=== PATIENT | male | born 1950 | race Caucasian/White ===

== ENCOUNTER 2016-08-22 12:37 | Emergency (ER) | payer OTHER ==
[~2016-08-22] VITALS: Ht 170.2 cm; Wt 80.5 kg
[2016-08-22 12:39] VITALS: Ht 170.2 cm; Wt 80.5 kg
[2016-08-22] MEDS ORDERED: IBUPROFEN 600 MG TAB PO ONE (14:30)
--- NOTE | 2016-08-22 15:56 | RADRPT ---
PROCEDURE: Left XR Hand. CLINICAL INDICATION: Pain. TECHNIQUE: AP, oblique and lateral views of the left hand were obtained. COMPARISON: FINDINGS: The bony elements are rarefied. There is a subacute fracture to the tuft of the distal left fourth phalanx. There is soft tissue swelling and a contour change noted at the distal ulnar side of the l eft fourth digit adjacent to the fracture site. There is a large spur off the dorsal articular surface of the distal left third phalanx. This is li jessika degenerative in nature. Post traumatic change is not excluded. There is narrowing of the first through fifth DIP joint spaces and second through fifth PIP joint sp aces. The radiocarpal joint is slightly narrowed. IMPRESSION: 1. There is soft tissue swelling with a contour change in the soft tissues along the ulnar side of t he distal left fourth phalanx. There is an underline minimally displaced fracture to the tuft of th e distal left fourth phalanx which is likely subacute in nature. 2. Polyarticular arthritis. 3. Rarefaction of bony elements. RPTAT:AAJJ Physician Britney Date Time Electronically viewed and signed by Physician Britney on 08/22/2016 15:56 TRAVON/
[2016-08-22] MEDS ORDERED: CEFAZOLIN 1 GM INJ IM ONE (16:30)
[2016-08-22] MEDS ORDERED: LIDOCAINE 2% (MDV) 20 ML INJ INJ ONE (16:30)
[2016-08-22] MEDS ORDERED: CEPH-443 PO (16:30)
[2016-08-22] MEDS ORDERED: SULF1TAB31 PO (16:31)
--- NOTE | 2016-08-22 16:52 | ERD ---
ER Documentation Chief Complaint Date/Time DATE: 08/22/16 TIME: 16:35 Chief Complaint mechanical fall hx left sided paralysis aftert brain surgery left arm injur HPI This is a 65-year-old male presents to the ER after he slipped and fell, landing on his left fourth digit. 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 Patient does not have any fever or chills. She does not have any numbness or tingling of the fingers. ROS 12 point review of systems was done, all negative except per HPI. Medications Home Meds Active Scripts Sulfamethoxazole/Trimethoprim* (Bactrim Ds* Tablet) 1 Each Tablet, 1 TAB PO BID , #14 TAB Prov:KHOI RICHMOND 08/22/16 Cephalexin* (Keflex*) 500 Mg Capsule, 500 MG PO QID for 7 Days, CAP Prov:KHOI RICHMOND 08/22/16 Allergies Allergies: Coded Allergies: No Known Allergy (Unverified , 08/22/16) PMhx/Soc Medical and Surgical Hx: pt denies Medical Hx, pt denies Surgical Hx Hx Alcohol Use: No Hx Substance Use: No Hx Tobacco Use: No Smoking Status: Never smoker Physical Exam Vitals Vital Signs Date Time Temp Pulse Resp B/P Pulse Ox O2 Delivery O2 Flow Rate FiO2 08/22/16 12:39 98.9 85 18 155/78 98 Physical Exam GENERAL: The patient is well developed and appropriate for usual state of health , in no apparent distress. HEENT: Atraumatic. CHEST: Clear to auscultation bilaterally. There are no rales, wheezes or rhonchi. HEART: Regular rate and rhythm. No murmurs, clicks, rubs or gallops. EXTREMITIES: Patient has a left-sided paralysis. Patient has an avulsion of the distal fourth digit, nailbed is completely avulsed. He shouldn't sensations are intact, patient does not have any range of motion of his finger secondary to known paralysis. There is no wrist pain, elbow or shoulder pain. Patient is intact to the ulnar radial and median nerves. NEURO: Alert and oriented. SKIN: The skin is warm and dry. Results 24 hrs Current Medications Medications (Trade) Dose Ordered Sig/Bhargavi Route PRN Reason Start Time Stop Time Status Last Admin Dose Admin Ibuprofen (Motrin) 600 mg ONCE ONCE PO 08/22/16 14:30 08/22/16 14:31 DC 08/22/16 14:18 Cefazolin Sodium (Ancef) 1 gm ONCE ONCE IM 08/22/16 16:30 08/22/16 16:31 DC 08/22/16 16:29 Lidocaine (Xylocaine 2% (Mdv) 20 ml) 20 ml ONCE ONCE INJ 08/22/16 16:30 08/22/16 16:31 DC Procedures/MDM This is a 65 year old male that presents to the ER after falling onto his 4th digit. Patient does have a fracture of the digit and was given Ancef and a tdap shot. He will be sent home with Keflex and Bactrim. Area was irrigated with copious amounts of normal saline and dressed. He was put in a metal splint. I discussed with the patient that the nail will likely fall out as the entire nails bed has come out. I discussed with this case with my supervising physician Dr. Mayo, he agrees with my medical decision making. Patient was told to f/u with Orth[facility] at [facility]. Suspicion for acute compartment syndrome, osteomyelitis, deep space infection is low. Patient is afebrile and well appearing. I shared my medical decision making with the patient he needs return to ER sooner symptoms worsen. Patient understands and agrees with plan. Departure Diagnosis: Primary Impression: Open finger fracture Condition: Stable Patient Instructions: Fracture, Finger (Open) Referrals: [facility] Additional Instructions: Llame al doctor AZALIA y gunner héctor CHRIS PARA DENTRO DE 1-2 THORNTON.Dgale a la secretaria que nosotros le instruimos hacer esta chris.Avise o llame si casas condicin se empeora antes de la chris. Regresa aqui si peor o no mejor. NECESITA TYREE UN [facility] KHOI RICHMOND Aug 22, 2016 16:52
[2016-08-22] MEDS ORDERED: DIPHTH/TET/ACEL PERTUSS (ADULT) 0.5 ML VIAL IM* ONE (17:00)
== END 2016-08-22 16:56 | disposition home or self-care (01) ==
LOC: FTE 12:37
DX: S62.635A Displaced fracture of distal phalanx of left ring finger, initial encounter for closed fracture (principal); W01.0XXA Fall on same level from slipping, tripping and stumbling without subsequent striking against object, initial encounter; Y92.9 Unspecified place or not applicable; Z23 Encounter for immunization
CPT/HCPCS: 29130; 73130; 90471; 90715; 96372; 99284; J0690

== ENCOUNTER 2016-08-23 18:24 | Emergency (ER) | payer OTHER ==
[~2016-08-23] VITALS: Ht 167.6 cm; Wt 81.5 kg
[~2016-08-23 18:24] MED LIST: CEPH-443 PO; SULF1TAB31 PO
[2016-08-23 18:29] VITALS: Ht 167.6 cm; Wt 81.5 kg
--- NOTE | 2016-08-23 18:47 | ERA ---
ER Documentation Chief Complaint Date/Time DATE: 08/23/16 TIME: 18:43 Chief Complaint wound check left 4th finger, also wants copy of xray result/cd HPI This is a 65-year-old male presenting one day after right fourth distal phalanx of hand injury. Patient is wanting dressing change and wound check. Patient states that has been painful but no other complications are noted. Documents of visit and nursing notes have been reviewed. ROS All systems reviewed and are negative except as per history of present illness. Medications Home Meds Active Scripts Sulfamethoxazole/Trimethoprim* (Bactrim Ds* Tablet) 1 Each Tablet, 1 TAB PO BID , #14 TAB Prov:BASILIO,KHOI C 08/22/16 Cephalexin* (Keflex*) 500 Mg Capsule, 500 MG PO QID for 7 Days, CAP Prov:BASILIO,KHOI C 08/22/16 Allergies Allergies: Coded Allergies: No Known Allergy (Unverified , 08/23/16) PMhx/Soc Hx Alcohol Use: No Hx Substance Use: No Hx Tobacco Use: No Physical Exam Vitals Vital Signs Date Time Temp Pulse Resp B/P Pulse Ox O2 Delivery O2 Flow Rate FiO2 08/23/16 20:41 98.1 68 20 145/68 96 Room Air 08/23/16 18:29 98.0 69 20 144/73 97 Physical Exam Const: Well-appearing 65-year-old male in no acute distress with bandage over the right fourth digit of the hand. Head: Atraumatic Eyes: Normal Conjunctiva ENT: Normal External Ears, Nose and Mouth. Neck: Full range of motion..~ No meningismus. Resp: Clear to auscultation bilaterally Cardio: Regular rate and rhythm, no murmurs Abd: Soft, non tender, non distended. Normal bowel sounds Skin: No petechiae or rashes Back: No midline or flank tenderness Ext: Right fourth digit of hand has laceration on the palmar aspect that is crescent-shaped starting with the apex at the DIP and progressing laterally and symmetrically down near the lateral nail folds but not passing the midline. The color of the finger is black/blue and areas of light. Patient is able to feel in the affected area. No cyanosis. Neur: Awake and alert. Neurovascularly intact bilaterally. Psych: Normal Mood and Affect Results 24 hrs Current Medications Medications (Trade) Dose Ordered Sig/Bhargavi Route PRN Reason Start Time Stop Time Status Last Admin Dose Admin Lidocaine (Xylocaine 2% (Mdv) 20 ml) 20 ml ONCE ONCE INJ 08/23/16 20:00 08/23/16 20:01 DC Procedures/MDM Patient is being evaluated for wound check. Bandage was removed by the nurse just sent I. Patient's wound was painful but the bandages taken off without complication. The tip of the finger starting at the DIP was black/blue/white. Patient has sensation and movement in the affected area. There is no discharge from the wound. I enlisted the help of my attending physician Dr. Vazquez who suggested the following: Re-bandage which was carried out by the nursing staff along with irrigation and cleaning of the wound with antibiotic ointment application. Follow-up examination revealed that the patient was still neurovascularly intact. Previous documents have been reviewed. Patient was given a copy of x-ray results. Patient will be discharged with instructions to continue treatment as previously prescribed. Has been instructed to follow-up with PCP in the next 1-3 days for further evaluation and possible referral to a specialist. My attending Dr. Summers has agreed with the assessment and plan. Patient's vitals are stable and his current condition is appropriate for discharge. Patient will be discharged at this time with discharge instructions and return precautions. Departure Diagnosis: Primary Impression: Encounter for wound re-check Additional Impression: Encounter for post-traumatic wound check Condition: Stable Additional Instructions: Follow up with your PCP within the next 1-3 days for a more thorough evaluation and a possible referral to a specialist. Return the the emergency department immediately if symptoms worsen or change. If you have any questions regarding medications, ask your pharmacist or us before you leave. If any adverse reactions occur while taking your medications, discontinue the treatment and return to the emergency department immediately. Take your medications as directed, and complete the entire course of treatment. BATSHEVA LOPEZ PA-C Aug 23, 2016 18:47
[2016-08-23] MEDS ORDERED: LIDOCAINE 2% (MDV) 20 ML INJ INJ ONE (20:00)
[2016-08-23 20:41] VITALS: BP 145/68; PULSE 68; RESP 20; TEMP 98.1
== END 2016-08-23 21:02 | disposition home or self-care (01) ==
LOC: FTE 18:24
DX: Z48.01 Encounter for change or removal of surgical wound dressing (principal)
CPT/HCPCS: 99281